=== PATIENT | female | born 1980 | race Caucasian/White ===

== ENCOUNTER 2018-05-02 13:39 | Emergency (ER) | payer OTHER, MEDICARE ==
[~2018-05-02] VITALS: Ht 160 cm; Wt 72.6 kg
[~2018-05-02 13:39] MED LIST: BACTRIM DS TAB1 EACH PO; PERCOCET 5-3251 EACH PO; TOPAMAX100 MG; XANAX 0.5 MG0.5 MG PO; ZOLOFT100 MG PO
[2018-05-02] MEDS ORDERED: NAPROSYN500 MG PO (15:32)
[2018-05-02 15:52] VITALS: BP 000/00
== END 2018-05-02 15:53 | disposition home or self-care (01) ==
LOC: M.ERS 13:39
DX: S46.811A Strain of other muscles, fascia and tendons at shoulder and upper arm level, right arm, initial encounter (principal); F41.9 Anxiety disorder, unspecified; F32.9 Major depressive disorder, single episode, unspecified; G47.30 Sleep apnea, unspecified; Z90.710 Acquired absence of both cervix and uterus; X58.XXXA Exposure to other specified factors, initial encounter; Y93.89 Activity, other specified; Y92.89 Other specified places as the place of occurrence of the external cause; Y99.8 Other external cause status

== ENCOUNTER 2021-03-16 08:09 | Emergency (ER) | payer OTHER, MEDICARE ==
[~2021-03-16] VITALS: Ht 160 cm; Wt 72.6 kg
[~2021-03-16 08:09] MED LIST changes: +NAPROSYN500 MG PO
[2021-03-16] MEDS ORDERED: NEURONTIN300 MG PO (08:30)
[2021-03-16 11:15] LABS: HEMATOCRIT 47.4 % (37.0-47.0); HEMOGLOBIN 16.8 gm/dL (12.0-15.0); MCH 32.5 pg (26.0-34.0); MCHC 35.5 g/dL (28.0-37.0); MCV 91.7 fL (80.0-100.0); MPV 8.4 fl. (7.2-11.1); RBC 5.17 mil/uL (4.20-5.00); RDW-CV 12.3 % (10.5-14.5); WBC 8.2 thou/uL (4.0-11.0)
[2021-03-16 11:23] LABS: CALCIUM 9.1 mg/dL (8.5-10.1); CREATININE 0.7 mg/dL (0.6-1.3)
[2021-03-16 12:11] LABS: INFLUENZA A ANTIGEN Negative (Negative); INFLUENZA B ANTIGEN Negative (Negative)
[2021-03-16 12:22] VITALS: BP 150/97
--- NOTE | 2021-03-17 09:47 | EKG ---
[place] [address] ELECTROCARDIOGRAM REPORT Name: CRISTINA ACEVEDORoom: [facility] [id number] Admission: 03/16/21 Attend Phys: Discharge: 03/16/21 Date of : 78 Date of Service: 03/16/21 1050 Report #: [id number] THIS REPORT FOR: //name// [facility] ED Test Date: 2021-03-16 Test Time: 10:50:05 Pat Name: CRISTINA RICHARDS Department: Room: Gender: F Grounds Worker: : 1980 Requested By: Lamonte Romeo Order Number: [id number] : Jourdan Kingston Measurements Intervals [place] Rate: 69 P: 24 AK: 169 QRS: 56 QRSD: 90 T: 32 QT: 406 QTc: 435 Interpretive Statements Sinus rhythm Compared to ECG 11/26/2014 20:06:34 Poor R-wave progression persists Electronically Signed On 03-17-2021 9:47:51 [employer]INT PROJECT MANAGER by Jourdan Kingston [email or web address] <ELECTRONICALLY SIGNED> By: Jourdan Kingston MD, [facility] 03/17/21 0947 1050 1050 Jourdan Kingston MD, [facility] /EPI
== END 2021-03-16 12:22 | disposition home or self-care (01) ==
LOC: M.ERS 08:09
PROVIDERS: Emergency Medicine Emergency Medical Services
DX: I10 Essential (primary) hypertension (principal); Z20.822 Contact with and (suspected) exposure to COVID-19; R07.89 Other chest pain; R19.7 Diarrhea, unspecified; R09.89 Other specified symptoms and signs involving the circulatory and respiratory systems; F32.9 Major depressive disorder, single episode, unspecified; F41.9 Anxiety disorder, unspecified; Z90.710 Acquired absence of both cervix and uterus; Z79.899 Other long term (current) drug therapy; Z88.8 Allergy status to other drugs, medicaments and biological substances

== ENCOUNTER 2021-03-17 12:09 | Emergency (ER) | payer OTHER, MEDICARE ==
[~2021-03-17] VITALS: Ht 160 cm; Wt 72.6 kg
[~2021-03-17 12:09] MED LIST changes: +NEURONTIN300 MG PO
[2021-03-17 16:30] VITALS: BP 185/118
--- NOTE | 2021-03-18 10:54 | EKG ---
[place] [address] ELECTROCARDIOGRAM REPORT Name: CRISTINA ACEVEDORoom: [facility]#: [id number] Admission: 03/17/21 Attend Phys: Discharge: 03/17/21 Date of : 78 Date of Service: 03/17/21 1608 Report #: [id number] THIS REPORT FOR: //name// [facility] ED Test Date: 2021-03-17 Test Time: 16:08:03 Pat Name: CRISTINA RICHARDS Department: Room: Gender: F Cardiothoracic Icu Rn: : 1980 Requested By: Lamonte Romeo Order Number: [id number] MD: Jourdan Kingston Measurements Intervals [place] Rate: 69 P: 14 TX: 160 QRS: 54 QRSD: 87 T: 30 QT: 394 QTc: 422 Interpretive Statements Sinus rhythm with sinus arrhythmia Baseline wander in lead(s) V4 Compared to ECG 03/16/2021 10:50:05 Sinus arrhythmia is noted Electronically Signed On 03-18-2021 10:53:56 P[employer]IC [employer]AT [employer]FFER by Jourdan Kingston [email or web address] <ELECTRONICALLY SIGNED> By: Jourdan Kingston MD, FAC 03/18/21 1053 1608 1608 Jourdan Kingston MD, [facility] /EPI
== END 2021-03-17 16:31 | disposition left against medical advice (07) ==
LOC: M.ERS 12:09
DX: I10 Essential (primary) hypertension (principal); R07.89 Other chest pain; R51.9 Headache, unspecified; R06.02 Shortness of breath; R11.0 Nausea; M79.602 Pain in left arm; Z90.711 Acquired absence of uterus with remaining cervical stump; F41.9 Anxiety disorder, unspecified; F32.9 Major depressive disorder, single episode, unspecified; Z79.899 Other long term (current) drug therapy; Z88.8 Allergy status to other drugs, medicaments and biological substances